=== PATIENT | female | born 1950 | race Caucasian/White ===

== ENCOUNTER 2022-05-29 15:30 | Outpatient (CLI) | payer MEDICARE, OTHER, SELFPAY ==
[2022-05-29 14:54] LABS: Vitamin D 25 Hydroxy* 60 ng/mL (30-80)
[2022-05-29 15:12] LABS: Ferritin* 6.8 ng/mL (11.1-264.0)
[2022-05-29 15:13] LABS: Cholesterol* 217 mg/dL (90-199); Triglycerides* 98 mg/dL (40-149)
[2022-05-29 15:14] LABS: HDL Cholesterol* 70 mg/dL (>=50); LDL Cholesterol Calculated 127 mg/dL (<100)
[2022-05-29 16:01] LABS: Vitamin B12* 610 pg/mL (243-894)
== END 2022-05-29 15:31 | disposition home or self-care (01) ==
PROVIDERS: PCP Emergency Medicine; Visit Provider Emergency Medicine
DX: E53.9 Vitamin B deficiency, unspecified (principal); E61.1 Iron deficiency; E78.5 Hyperlipidemia, unspecified; E55.9 Vitamin D deficiency, unspecified
CPT/HCPCS: 80061; 82306; 82607; 82728

== ENCOUNTER 2022-06-19 09:02 | Outpatient (CLI) | payer MEDICARE, OTHER, SELFPAY ==
[2022-06-19 13:36] LABS: Albumin* 4.2 g/dL (3.3-5.0); Chloride* 106 mmol/L (96-114); Sodium* 139 mmol/L (135-149)
[2022-06-19 13:37] LABS: Potassium* 4.5 mmol/L (3.6-5.1)
[2022-06-19 13:39] LABS: Alanine Aminotransferase* 27 U/L (4-35); Alkaline Phosphatase* 94 U/L (40-150); Aspartate Amino Transferase* 30 U/L (12-35); Bilirubin Total* 0.6 mg/dL (0.1-1.5); Blood Urea Nitrogen* 21 mg/dL (7-30); Carbon Dioxide* 25 mmol/L (20-32); Creatinine* 0.6 mg/dL (0.5-1.5); Estimated Glomerular Filt Rate 95 ml/min; Total Protein* 7.3 g/dL (6.0-8.3)
[2022-06-19 13:40] LABS: Calcium* 9.6 mg/dL (8.4-10.6); Glucose* 96 mg/dL (60-115)
== END 2022-06-19 09:03 | disposition home or self-care (01) ==
PROVIDERS: PCP Emergency Medicine; Visit Provider Emergency Medicine
DX: D75.839 Thrombocytosis, unspecified (principal); E55.9 Vitamin D deficiency, unspecified; E78.5 Hyperlipidemia, unspecified
CPT/HCPCS: 80053

== ENCOUNTER 2022-07-18 12:21 | Outpatient (CLI) | payer MEDICARE, OTHER, SELFPAY | END 2022-07-18 12:22 | disposition home or self-care (01) | LOC: OP CLINIC 12:29 | PROVIDERS: PCP Emergency Medicine; Visit Provider Family Medicine | DX: K22.89 Other specified disease of esophagus (principal); K21.00 Gastro-esophageal reflux disease with esophagitis, without bleeding; K29.70 Gastritis, unspecified, without bleeding | CPT/HCPCS: 43239; 88305; J2250; J3010 ==

== ENCOUNTER 2022-09-02 12:30 | Outpatient (CLI) | payer MEDICARE, OTHER, SELFPAY ==
--- NOTE | 2022-09-02 01:00 | CRLHL7_ITS ---
For Patients: As a result of the Century Cures Act, medical imaging exams and procedure reports are released immediately into your electronic medical record. You may view this report before your referring provider. If you have questions, please contact your health care provider. BILATERAL SCREENING MAMMOGRAM WITH COMPUTER-AIDED DETECTION TECHNIQUE: CC and MLO views were obtained. These mammographic images have been obtained using full-field digital technique. These mammographic images were interpreted with the benefit of computer-aided detection. COMPARISON FILM: 12/12/20, 05/01/16, 03/26/07. FINDINGS: There are scattered areas of fibroglandular density IMPRESSION: There is no radiographic evidence for malignancy. ASSESSMENT: BI-RADS Category 1: Negative RECOMMENDATION: Routine screening mammogram in 1 year. A lay language report of this examination will be provided to the patient. Omar Drake M.D. Diagnostic Radiologist [email or web address] Transcribed: 1:50 p.huseyin jacobsen/Dictated by: Omar Drake MD @ 09/03/2022 11:13:00 AM (Electronically Signed)
== END 2022-09-02 12:31 | disposition home or self-care (01) ==
PROVIDERS: PCP Emergency Medicine; Visit Provider Emergency Medicine
DX: Z12.31 Encounter for screening mammogram for malignant neoplasm of breast (principal)
CPT/HCPCS: 77067

== ENCOUNTER 2022-09-02 13:05 | Outpatient (CLI) | payer MEDICARE, SELFPAY ==
--- NOTE | 2022-09-02 14:00 | CRLHL7_ITS ---
For Patients: As a result of the Cures Act, medical imaging exams and procedure reports are released immediately into your electronic medical record. You may view this report before your referring provider. If you have questions, please contact your health care provider. INDICATION: Lung cancer screening. History of smoking. High risk patient with greater than 30 pack-year smoking history. TECHNIQUE: Low-dose lung cancer screening non-contrast CT chest. Dose reduction techniques were used. COMPARISON: None. FINDINGS: NODULES: 2 millimeter calcified nodule left upper lobe, . Calcified nodule right lower lobe measuring 9 millimeters. 3 millimeter nodule left lower lobe, . LUNGS AND PLEURA: COPD/emphysema. Posterior fibrotic change both lower lobes. MEDIASTINUM: No adenopathy. Calcified right hilar lymph nodes. CORONARY ARTERY CALCIFICATION: Present. LIMITED UPPER ABDOMEN: Postop changes to the stomach. Hiatal hernia. Left adrenal adenoma suspected. MUSCULOSKELETAL: Discogenic spurring. No fracture IMPRESSION: Negative for lung cancer screening purposes. Sequela of granulomatous disease. LUNG-RADS CATEGORY: 2: Benign. RADIOLOGIST RECOMMENDATION: Continue annual screening with low-dose CT chest in 12 months. Please note that all CT scans at this facility use dose modulation, iterative reconstruction, and/or weight-based dosing when appropriate to reduce radiation dose to as low as reasonably achievable. Dictated by Omar Drake MD @ 09/03/2022 10:34:28 AM (Electronically Signed)
== END 2022-09-02 13:06 | disposition home or self-care (01) ==
LOC: CT 13:05
PROVIDERS: PCP Emergency Medicine; Visit Provider Emergency Medicine
DX: R91.8 Other nonspecific abnormal finding of lung field (principal); F17.210 Nicotine dependence, cigarettes, uncomplicated; J44.9 Chronic obstructive pulmonary disease, unspecified
CPT/HCPCS: 71271

== ENCOUNTER 2023-06-08 09:10 | Outpatient (CLI) | payer MEDICARE, OTHER, SELFPAY | END 2023-06-08 09:11 | disposition home or self-care (01) | LOC: NFLDREF 06-10 11:33 | PROVIDERS: PCP Emergency Medicine; Referring Provider Emergency Medicine; Visit Provider Emergency Medicine | DX: D50.9 Iron deficiency anemia, unspecified (principal); E55.9 Vitamin D deficiency, unspecified; E78.5 Hyperlipidemia, unspecified; Z13.228 Encounter for screening for other metabolic disorders | CPT/HCPCS: 80053; 80061; 82306; 82728 ==

== ENCOUNTER 2023-06-25 15:31 | Outpatient (CLI) | payer MEDICARE, OTHER, SELFPAY | END 2023-06-25 15:32 | disposition home or self-care (01) | PROVIDERS: PCP Emergency Medicine; Visit Provider Emergency Medicine | DX: D50.9 Iron deficiency anemia, unspecified (principal) | CPT/HCPCS: 82607; 86258; 86364 ==

== ENCOUNTER 2023-07-14 10:00 | Outpatient (RCR) | payer MEDICARE, OTHER, SELFPAY ==
--- NOTE | 2023-07-03 13:51 | ONC.NURNOTE ---
Dx: iron deficiency anemia
--- NOTE | 2023-07-03 14:23 | URNOTE ---
Request received for authorization for?[facility] ([id number]). Prior authorization is not required as services are based on medical necessity and follow Medicare guidelines.
[2023-07-07 10:11] VITALS: BP 130/84; PULSE 73; RESP 16; TEMP 36.5; O2SAT 99
[2023-07-07] MEDS: FERRIC CARBOXYMALTOSE 750 MG in 0.9 % SODIUM CHLORIDE 250 ml 250 ML 1060 MG IVPB (11:29)
[2023-07-07 11:55] VITALS: BP 116/73; PULSE 65; RESP 18; O2SAT 99
[2023-07-07 12:26] VITALS: BP 117/74; PULSE 69; RESP 18; O2SAT 97
[2023-07-14 09:55] VITALS: BP 115/76; PULSE 73; RESP 16; TEMP 36.1; O2SAT 99
[2023-07-14] MEDS: 0.9 % SODIUM CHLORIDE 250 ml IV (10:30)
[2023-07-14] MEDS: FERRIC CARBOXYMALTOSE 750 MG in 0.9 % SODIUM CHLORIDE 250 ml 250 ML 800 MG IVPB (10:36)
[2023-07-14 11:08] VITALS: BP 129/75; PULSE 70; RESP 16; TEMP 36.8; O2SAT 99
[2023-07-14 11:42] VITALS: BP 107/72; PULSE 69; RESP 16; TEMP 36.3; O2SAT 99
[2023-07-14] MEDS: SODIUM CHLORIDE 0.9 % (FLUSH) 10 ML SYRINGE IVF (11:50)
== END 2024-01-03 23:59 | disposition home or self-care (01) ==
LOC: CCIC 10:00
PROVIDERS: PCP Emergency Medicine; Referring Provider Emergency Medicine; Visit Provider Clinical Nurse Specialist
DX: D50.9 Iron deficiency anemia, unspecified (principal)
CPT/HCPCS: 96365; J1439; J7050

== ENCOUNTER 2023-09-17 12:46 | Outpatient (CLI) | payer MEDICARE, OTHER, SELFPAY ==
--- NOTE | 2023-09-17 13:00 | CT_ITS ---
Patient: XAVIER WESTON Facility:?[facility] Patient ID:?[id number] Site Patient ID:?[id number]. Site :?1950 Study:?CT-Chest LUNG SCREENING-09/17/2023 1:30:54 PM Ordering Physician:?DR. MARQUES Final Report: INDICATION: Lung cancer screening. History of smoking. High risk patient with greater than 20 pack-year smoking history. TECHNIQUE: Low-dose lung cancer screening non-contrast CT chest. Dose reduction techniques were used. COMPARISON: 11/13/2016, 09/02/2022 FINDINGS: NODULES: Calcified granuloma in the right lower lobe. Stable 2 millimeter subpleural nodule left lower lobe, 3/59. LUNGS AND PLEURA: Emphysematous changes are present. Linear subsegmental scarring in the lateral right lower lobe. Dependent areas of scarring/fibrosis noted. MEDIASTINUM: No adenopathy. Vascular calcifications. CORONARY ARTERY CALCIFICATION: Extensive. LIMITED UPPER ABDOMEN: Postop changes are present in the stomach. Similar appearance of the left adrenal gland. Calcified granulomas in the spleen. MUSCULOSKELETAL: Degenerative disc disease. No fracture. IMPRESSION: Negative for lung cancer screening purposes. LUNG-RADS CATEGORY: 2: Benign. RADIOLOGIST RECOMMENDATION: Continue annual screening with low-dose CT chest in 12 months. Please note that all CT scans at this facility use dose modulation, iterative reconstruction, and/or weight-based dosing when appropriate to reduce radiation dose to as low as reasonably achievable. Dictated by Omar Drake MD @ 09/18/2023 9:53:00 AM Signed by:?Omar Drake MD @09/18/2023 9:53:00 AM (Electronic Signature)
--- NOTE | 2023-09-17 13:30 | XR_ITS ---
Patient: XAVIER WESTON Facility:?[facility] Patient ID:?[id number] Site Patient ID:?[id number]. Site :?1950 Study:?DEXA-Bone Density -09/17/2023 1:29:42 PM Ordering Physician:YODIT Final Report: DXA BONE MINERAL DENSITY STUDY Reason for exam: osteopenia screening. Current height (in): 66.5. Weight (lb): 190. Menopause age: 49. Ethnicity: White. 1. Have you had a previous hip or vertebral fracture? No. 2. Have you had any fractures during your adult life which did not result from significant trauma (e.g., auto accident)? No. 3. Did either of your parents have a hip fracture? No. 4. Do you smoke? Yes. 5. Have you ever taken Glucocorticoids? No. 6. Do you have rheumatoid arthritis? No. 7. Do you have secondary osteoporosis? No. 8. Do you drink 3 or more alcoholic drinks per day? No. 9. Are you being treated for osteoporosis? No. 10. Have you ever taken any of the following medications: Actonel, Evista, Fosamax, Miacalcin, Reclast, Boniva, Forteo, HRT (i.e., estrogen/hormone therapy), Protelos, Prolia, Vitamin D, Calcium, other ? please specify. ANSWER: Yes, vitamin D and calcium. 11. Do you have any of the following medical conditions: Anorexia or bulimia, asthma or emphysema, end stage renal disease, hyperparathyroidism, any seizure disorders, cancer, inflammatory bowel diseases, hysterectomy, other ? please specify. ANSWER: No. 12. What was your maximum height (inches)? 67. 13. Do you perform weight bearing exercise regularly? No. 14. Do you regularly consume dairy products? Yes. 15. Do you drink caffeinated beverages? Yes. 16. At what age did your period start? 11. 17. Are you premenopausal? No. 18. How many full-term pregnancies have you had? 0. 19. Have you ever missed your period for more than 6 months in a row (not including or menopause)? No. TECHNIQUE: Bone mineral density study was performed using the [employer]. FINDINGS: The results of the study expressed as bone mineral density (BMD) are as follows: Lumbar spine L1 to L3: BMD: 0.817 g/cm2. T-score: -1.8. Z-score: 0.5 Neck Left: BMD: 0.667 g/cm2. T-score: -1.6. Z-score: 0.4 Right: BMD: 0.580 g/cm2. T-score: -2.4. Z-score: -0.4 Total Left: BMD: 0.768 g/cm2. T-score: -1.4. Z-score: 0.3 Right: BMD: 0.706 g/cm2. T-score: -1.9. Z-score: -0.2 IMPRESSION: Osteopenia. *Comparison exams done prior to 10/2019 were performed on different unit, [employer]. COMPARISON: Compared with scan of 12/12/2020, the bone mineral density has decreased by 1.1 percent at the spine and decreased by 3.9 percent at the hip. FRAX 10-year Fracture Risk Major Osteoporotic Fracture: 16% Hip Fracture: 6.4% Reported Risk Factors: [place] () Neck BMD=0.580, BMI=30.2, smoking Omar Drake M.D. Diagnostic Radiologist [email or web address] D& Transcribed: 3:23 p.mKelby jacobsen/Dictated by: Omar Drake MD @ 09/18/2023 10:41:00 AM Signed by:?Omar Drake MD @09/18/2023 7:14:35 PM (Electronic Signature)
--- NOTE | 2023-09-17 14:00 | MM_ITS ---
Patient: XAVIER WESTON Facility:?[facility] Patient ID:?[id number] Site Patient ID:?[id number] Site :?1950 Study:?XRay-Breast Bilateral 3D W/CAD-09/17/2023 2:07:35 PM Ordering Physician:?Cherelle Gautam Final Report: BILATERAL SCREENING MAMMOGRAM WITH COMPUTER-AIDED DETECTION AND TOMOSYNTHESIS TECHNIQUE: CC and MLO views were obtained. These mammographic images have been obtained using full-field digital technique. These mammographic images were interpreted with the benefit of computer-aided detection. Breast Tomosynthesis was used in this interpretation. COMPARISON FILM: 09/02/22, 12/12/20, 05/01/16. FINDINGS: There are scattered areas of fibroglandular density. IMPRESSION: There is no radiographic evidence for malignancy. ASSESSMENT: BI-RADS Category 2: Benign RECOMMENDATION: Routine screening mammogram in 1 year. A lay language report of this examination will be provided to the patient. Omar Drake M.D. Diagnostic Radiologist [email or web address] DSM/sp R& Transcribed: 7:08 p.m. SP/Dictated by: Omar Drake MD @ 09/21/2023 8:45:00 AM Signed by:?Omar Drake MD @09/21/2023 8:47:34 PM (Electronic Signature)
== END 2023-09-17 12:47 | disposition home or self-care (01) ==
PROVIDERS: PCP Emergency Medicine; Visit Provider Emergency Medicine
DX: Z12.31 Encounter for screening mammogram for malignant neoplasm of breast (principal); Z12.2 Encounter for screening for malignant neoplasm of respiratory organs; F17.210 Nicotine dependence, cigarettes, uncomplicated; Z13.820 Encounter for screening for osteoporosis; M85.89 Other specified disorders of bone density and structure, multiple sites; Z78.0 Asymptomatic menopausal state
CPT/HCPCS: 71271; 77063; 77067; 77080

== ENCOUNTER 2024-10-17 08:26 | Outpatient (CLI) | payer MEDICARE, SELFPAY | END 2024-10-17 08:27 | disposition home or self-care (01) | LOC: NFLDREF 10-21 08:13 | PROVIDERS: PCP Emergency Medicine; Referring Provider Emergency Medicine; Visit Provider Emergency Medicine | DX: E78.2 Mixed hyperlipidemia (principal); D50.9 Iron deficiency anemia, unspecified; E55.9 Vitamin D deficiency, unspecified; E53.8 Deficiency of other specified B group vitamins | CPT/HCPCS: 80048; 80061; 82306; 82607; 82728 ==

== ENCOUNTER 2024-11-28 12:26 | Outpatient (CLI) | payer MEDICARE, SELFPAY ==
--- NOTE | 2024-11-28 13:00 | CRLHL7_ITS ---
For Patients: As a result of the Century Cures Act, medical imaging exams and procedure reports are released immediately into your electronic medical record. You may view this report before your referring provider. If you have questions, please contact your health care provider. INDICATION: Lung cancer screening. Smoking history. TECHNIQUE: CT chest low dose without contrast. COMPARISON: September 17, 2023. September 02, 2022. FINDINGS: Lungs and pleural spaces: New tiny 3 mm nodule lateral right upper lobe series 3, image 19. No other suspicious nodules or infiltrates. Stable emphysema. Pleural spaces are clear. Heart and vasculature: Heart size is normal. Thoracic aorta and pulmonary artery are normal in caliber. Coronary artery atherosclerosis is present Lymph nodes and mediastinum: No mediastinal, hilar, or axillary adenopathy. Chest wall: Unremarkable. Upper abdomen: Normal. Bones: Unremarkable for age. IMPRESSION: New tiny 3 mm right upper lobe nodule. Lung-RADS Category 3: PROBABLY BENIGN. Recommend 6 month follow up LDCT. Probability of malignancy is 1-2%. Please note that all CT scans at this facility use dose modulation, iterative reconstruction, and/or weight-based dosing when appropriate to reduce radiation dose to as low as reasonably achievable. Dictated by Angel Raza MD @ 12/03/2024 7:18:56 AM (Electronically Signed)
--- NOTE | 2024-11-28 13:20 | CRLHL7_ITS ---
For Patients: As a result of the Century Cures Act, medical imaging exams and procedure reports are released immediately into your electronic medical record. You may view this report before your referring provider. If you have questions, please contact your health care provider. INDICATION: BILATERAL SCREENING MAMMOGRAM, ASYMPTOMATIC 74 Y/O FEMALE COMPARISON: 09/17/2023, 09/02/2022, 12/12/2020 TECHNIQUE: Digital mammogram in CC and MLO projections including computer-aided detection (CAD) and tomosynthesis. BREAST COMPOSITION: There are scattered areas of fibroglandular density. FINDINGS: No suspicious findings. ASSESSMENT: BI-RADS 1 Negative RECOMMENDATION: Annual screening mammogram. A lay language report of this examination will be provided to the patient. Dictated by: Brianne Nguyễn MD @ 11/29/2024 14:35:59 (Electronically Signed)
== END 2024-11-28 12:27 | disposition home or self-care (01) ==
LOC: CT 12:27
PROVIDERS: PCP Emergency Medicine; Visit Provider Emergency Medicine
DX: Z12.2 Encounter for screening for malignant neoplasm of respiratory organs (principal); R91.8 Other nonspecific abnormal finding of lung field; F17.210 Nicotine dependence, cigarettes, uncomplicated; Z12.31 Encounter for screening mammogram for malignant neoplasm of breast
CPT/HCPCS: 71271; 77063; 77067

== ENCOUNTER 2025-01-28 09:00 | Outpatient (CLI) | payer MEDICARE, SELFPAY | END 2025-01-28 09:01 | disposition home or self-care (01) | LOC: NFLDREF 02-02 10:40 | PROVIDERS: PCP Physician Assistant Medical; Referring Provider Physician Assistant Medical; Visit Provider Physician Assistant | DX: R19.7 Diarrhea, unspecified (principal) | CPT/HCPCS: 87507 ==